=== PATIENT | female | born 1925 | race Caucasian/White ===

== ENCOUNTER 2016-08-10 13:39 | Observation (INO) ==
[2016-08-10] MEDS ORDERED: Ipratropium/Albuterol Neb 3 ML IH ONE (14:01)
--- NOTE | 2016-08-10 14:02 | Emergency Department Note ---
Disposition Clinical Impression: Failure of outpatient treatment Acute bronchitis Qualifiers: Bronchitis organism: unspecified organism Qualified Code(s): J20.9 - Acute bronchitis, unspecified Disposition: Admitted As Inpatient Condition: Fair Referrals: NO,PCP [Non-Partnered Physician] - Forms: ED Satisfaction Letter SOB HPI - General Chief Complaint: ED Shortness of Breath/Dyspnea Stated Complaint: DONTAE/weakness Source: EMS Limitations: no limitations Nursing Notes Reviewed: Yes Vital Signs Reviewed: Yes - History of Present Illness Pt Subjective Complaint: shortness of breath Onset (ago): day(s) (9) Context: recent illness Severity: moderate Consistency/Duration: intermittent Improves with: nothing Worsens with: nothing Known history of: other (placed on Zpack 3 days ag) Associated symptoms: Reports: pain with inspiration Cough present: Yes Cough Description: Involuntary Cough Frequency: Intermittent Sputum production: Yes Sputum Amount: Scant Sputum Color: Clear - Related Data Home Medications Medication Instructions Recorded Confirmed Aspirin 08/07/16 Dyazide 08/07/16 Losartan 08/07/16 Lovastatin 08/07/16 Multi-Day Vitamins 08/07/16 08/07/16 Paxil 08/07/16 Warfarin 08/07/16 Previous Rx's Medication Instructions Recorded Azithromycin [Zithromax] 1 applic PO DAILY #6 tablet 08/07/16 Allergies Allergy/AdvReac Type Severity Reaction Status Date / Time Sulfa (Sulfonamide Allergy Rash Verified 08/07/16 13:32 Antibiotics) All systems ED: reviewed and negative except as stated. Constitutional: Reports: weakness Respiratory: Reports: cough, dyspnea Past Medical History - Past Medical History Source: patient, old records reviewed, nursing notes reviewed Medical history: Reports: atrial fibrillation, cancer, CVA, GERD, other Psychiatric history: Reports: other - Social History Smoking Status: Unknown if ever smoked Smokeless Tobacco Status: No Alcohol use: Reports: unknown Drug use: Reports: unknown Physical Exam - General Limitations: no limitations General appearance: alert - Head Head exam: atraumatic, normocephalic, normal inspection - Eye Eye exam: Present: normal appearance, PERRL, EOMI - Expanded Eye Exam Pupils: Left: reactive - ENT ENT exam: normal exam, normal oropharynx, mucous membranes moist - Expanded ENT Exam External ear exam: Present: normal external inspection Mouth exam: Present: normal external inspection Teeth exam: Present: normal inspection Throat exam: Present: normal inspection - Neck Neck exam: Present: normal inspection, full ROM, trachea midline - Chest Chest inspection: Present: normal inspection, symmetric chest wall rise - Respiratory Respiratory exam: Present: other (bilat coarse rhonchi) - Cardiovascular Cardiovascular exam: Present: regular rate, normal rhythm, normal heart sounds - Abdominal Exam Abdominal exam: Present: soft, Non-Tender. Absent: tenderness, distention, guarding, rebound, rigidity - Extremities Exam Extremities exam: Present: normal inspection, full ROM. Absent: tenderness, pedal edema - Expanded Upper Extremity Exam Shoulder exam: Present: normal inspection, full ROM Arm exam: Present: normal inspection, full ROM Elbow exam: Present: normal inspection, full ROM Forearm/Wrist exam: Present: normal inspection, full ROM Hand exam: Present: normal inspection, full ROM Vascular exam: Normal: capillary refill, radial pulse - Expanded Lower Extremity Exam Hip/Pelvis exam: Present: normal inspection, full ROM Upper leg exam: Present: normal inspection, full ROM Knee exam: Present: normal inspection, full ROM Lower leg exam: Present: normal inspection, full ROM Ankle exam: Present: normal inspection, full ROM Foot/toe exam: Present: normal inspection, full ROM Neurovascular/Tendon exam: Absent: motor deficit, sensory deficit, tendon deficit - Back Exam Back exam: Present: normal inspection, full ROM. Absent: tenderness - Neurological Exam Neurological exam: Present: alert - Expanded Neurological Exam Patient oriented to: Present: person, place, time Coma Scale Eye Opening: Spontaneous Coma Scale Motor Response: Obeys Commands Coma Scale Verbal Response: Oriented Coma Scale Total: 15 - Psychiatric Psychiatric exam: Present: normal affect, normal mood - Skin Skin exam: Present: warm, dry, intact, normal color Course Vital Signs Temperature 98 F 08/10/16 13:40 Pulse Rate 72 08/10/16 13:40 Respiratory Rate 22 08/10/16 13:40 Blood Pressure 134/63 08/10/16 13:40 O2 Sat by Pulse Oximetry 98 08/10/16 13:40 Temperature 98 F 08/10/16 13:40 Pulse Rate 72 08/10/16 13:40 Respiratory Rate 16 08/10/16 14:08 Blood Pressure 134/63 08/10/16 13:40 O2 Sat by Pulse Oximetry 97 08/10/16 14:08 Oxygen Delivery Oxygen Delivery Room Air Shortness of Breath/Dyspnea - Differential Diagnosis Likely: acute exacerbation of chronic obstructive airways disease, congestive heart failure, pneumonia, asthma with exacerbation, pulmonary embolism, pneumothorax, arrhythmia - Medical Records Medical records reviewed: Yes I reviewed the patient's medical records. - Lab Data Lab results reviewed: Yes I reviewed the patient's lab results. Result diagrams: 08/10/16 15:55 08/10/16 15:55 Lab Results 08/10/16 08/10/16 08/10/16 Range/Units 15:55 15:55 15:55 WBC 6.4 (4.3-11.1) K/mcL RBC 4.21 (3.82-4.97) M/mcL Hgb 12.1 (11.5-15.4) g/dL Hct 36.9 (35.3-44.9) % MCV 87.6 (83.0-100.0) fL MCH 28.7 (28.0-33.3) pg MCHC 32.8 (31.6-35.5) g/dL RDW 14.5 (11.5-14.5) % Plt Count 223 (140-400) K/mcL MPV 10.5 (9.4-12.4) fL Immature Gran % 0.5 (0-4) % Seg Neutrophils % 78.8 % Lymphocytes % 14.2 % Monocytes % 5.8 % Eosinophils % 0.5 % Basophils % 0.2 % Neutrophils # 5.1 (1.6-8.9) K/mcL Lymphocytes # 0.9 (0.6-4.6) K/mcL Monocytes # 0.4 (0.0-1.3) K/mcL Eosinophils # 0.0 (0.0-0.6) K/mcL Basophils # 0.0 (0.0-0.2) K/mcL Sodium 140 (136-145) mEq/L Potassium 3.7 (3.5-4.5) mEq/L Chloride 104 (98-109) mEq/L Carbon Dioxide 25 (19-29) mEq/L BUN 32 H (7-20) mg/dL Creatinine 1.51 H (0.57-1.11) mg/dL Est GFR ( Amer) 39 L (> 60) Est GFR (Non-Af Amer) 32 L (> 60) BUN/Creatinine Ratio 21 (6-26) Glucose 104 H (70-99) mg/dL Calculated Osmolality 297 (280-300) Calcium 8.8 (8.6-10.8) mg/dL Troponin I 0.01 (0-0.03) ng/mL B-Natriuretic Peptide (0-100) pg/mL 08/10/16 Range/Units 15:55 WBC (4.3-11.1) K/mcL RBC (3.82-4.97) M/mcL Hgb (11.5-15.4) g/dL Hct (35.3-44.9) % MCV (83.0-100.0) fL MCH (28.0-33.3) pg MCHC (31.6-35.5) g/dL RDW (11.5-14.5) % Plt Count (140-400) K/mcL MPV (9.4-12.4) fL Immature Gran % (0-4) % Seg Neutrophils % % Lymphocytes % % Monocytes % % Eosinophils % % Basophils % % Neutrophils # (1.6-8.9) K/mcL Lymphocytes # (0.6-4.6) K/mcL Monocytes # (0.0-1.3) K/mcL Eosinophils # (0.0-0.6) K/mcL Basophils # (0.0-0.2) K/mcL Sodium (136-145) mEq/L Potassium (3.5-4.5) mEq/L Chloride (98-109) mEq/L Carbon Dioxide (19-29) mEq/L BUN (7-20) mg/dL Creatinine (0.57-1.11) mg/dL Est GFR ( Amer) (> 60) Est GFR (Non-Af Amer) (> 60) BUN/Creatinine Ratio (6-26) Glucose (70-99) mg/dL Calculated Osmolality (280-300) Calcium (8.6-10.8) mg/dL Troponin I (0-0.03) ng/mL B-Natriuretic Peptide 152 H (0-100) pg/mL - Radiology Data Radiology results reviewed: Yes I reviewed the patient's radiology results.
[2016-08-10 16:06] LABS: Basophils % 0.2 %; Eosinophils % 0.5 %; Hematocrit 36.9 % (35.3-44.9); Hemoglobin 12.1 g/dL (11.5-15.4); Immature Granulocytes % 0.5 % (0-4); Lymphocytes # 0.9 K/mcL (0.6-4.6); Lymphocytes % 14.2 %; Mean Corpuscular HGB Conc 32.8 g/dL (31.6-35.5); Mean Corpuscular Hemoglobin 28.7 pg (28.0-33.3); Mean Corpuscular Volume 87.6 fL (83.0-100.0); Mean Platelet Volume 10.5 fL (9.4-12.4); Monocytes # 0.4 K/mcL (0.0-1.3); Monocytes % 5.8 %; Neutrophils # 5.1 K/mcL (1.6-8.9); Platelet Count 223 K/mcL (140-400); Red Blood Count 4.21 M/mcL (3.82-4.97); Red Cell Distribution Width 14.5 % (11.5-14.5); Segmented Neutrophils % 78.8 %
[2016-08-10 16:20] LABS: Calcium 8.8 mg/dL (8.6-10.8); Potassium 3.7 mEq/L (3.5-4.5)
[2016-08-10] MEDS ORDERED: Acetaminophen 325 MG TABLET PO PRN (20:26)
[2016-08-10] MEDS ORDERED: *HR* Promethazine 25 MG/ML VIAL IVP PRN (20:26)
[2016-08-10] MEDS ORDERED: Naloxone 0.4 MG/ML INJ IVP PRN (20:26)
--- NOTE | 2016-08-10 20:42 | Internal Med History&Physical ---
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, old, speech/language deficit Current visit: Yes Status: Chronic (5) HTN (hypertension) Current visit: Yes Status: Chronic (6) Upper respiratory infection Current visit: No Status: Acute levaquin PO bronchodilators Qualifiers: URI type: unspecified URI Qualified Code(s): J06.9 - Acute upper respiratory infection, unspecified (7) CKD (chronic kidney disease) Current visit: Yes Status: Acute BUN 32/Cr 1.51 near baseline from 2015 hold diazide and cozaar for 24-48h avoid nephrotoxins Qualifiers: Chronic kidney disease stage: unspecified stage Qualified Code(s): N18.9 - Chronic kidney disease, unspecified Internal Medicine - H&P: HPI Chief complaint: shortness of breath Admitted From: Home Plans for Post Hospital Care: Home History of present illness: Ms. Ronquillo is a 89 year old female c/o shortness of breath. 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 Pt states that yellow-white productive cough and dyspnea started about 5 days ago. Pt states SOB made worse with any activity as well as at night when she is laying down in bed which has caused her to be unable to sleep because she cannot stop coughing. She states increased fatigue due to not sleeping well. She states the excessive coughing causes her dyspnea to be worse. She also state she has some discomfort with deep inspiration, which also increases her cough. Pt presented to urgent care 08/07 was given a zpack for URI, she has taken three days of the medication and has not improved her symptoms. Pt denies night sweats, headache, body aches, fever/chills, nausea,vomiting, denies abdominal pain difficulty or pain with urination or change in BM, she denies hemoptysis, home 02use. She denies history of smoking, COPD or asthma. Past Med Surg Social Fam HX - Past Medical History Medical history: arthritis, atrial fibrillation, cancer, CVA, GERD, hypertension , other (memory loss post stroke) Psychiatric history: depression, other - Social History Smoking Status: Never smoker Smokeless Tobacco Status: No Alcohol use: none Drug use: none Occupational status: retired Current living situation: Home, With Family Activity Level: Mostly sedentary - Family History Brother Living Status: Hx Family Cardiac Disorders: Yes Hx Family Cancer: Yes Internal Medicine - H&P: Meds Aspirin [Lo-Dose Aspirin EC] 81 mg PO DAILY 08/10/16 [History] Losartan Potassium [Cozaar] 25 mg PO DAILY 08/10/16 [History] Lovastatin [Mevacor] 20 mg PO HS 08/10/16 [History] Multivitamin [Multi-Day Vitamins] 1 tab PO DAILY 08/10/16 [History] Omeprazole [PriLOSEC] 20 mg PO DAILY 08/10/16 [History] Paroxetine HCl [Paxil] 20 mg PO DAILY 08/10/16 [History] Triamterene/Hydrochlorothiazid [Dyazide 37.5-25 Capsule] 1 cap PO DAILY [History] Warfarin [Coumadin] 2.5 mg PO DAILY 08/10/16 [History] Allergies Sulfa (Sulfonamide Antibiotics) Allergy (Verified 08/07/16 13:32) Rash All Systems PM: A 10-system review of systems was performed and is negative for pertinent findings except as documented above in the HPI. - Constitutional Constitutional: fatigue, no fever(s), no falls, no night sweats, no weakness - EENT Eyes: no change in vision, no discharge, no pain, no photophobia - Cardiovascular Cardiovascular ROS IM: no chest pain, no diaphoresis, no dyspnea, no lightheadedness, no palpitations, no syncope - Respiratory Respiratory: cough, dyspnea, dyspnea on exertion, pain on inspiration, chest congestion, excessive phlegm production, change in phlegm color, pain with cough , no hemoptysis, no stridor - Gastrointestinal Gastrointestinal: no abdominal pain, no diarrhea, no hematemesis, no hematochezia, no melena, no nausea, no vomiting - Genitourinary Genitourinary: no change in urinary stream, no dysuria, no flank pain, no hematuria - Musculoskeletal Musculoskeletal ROS IM: no arthralgias, no myalgias, no numbness, no tingling - Integumentary Integumentary IM: no rash, no unusual bruising - Neurological Neurological ROS: memory loss (chronic post stroke), no frequent falls, no headache(s), no numbness, no tingling - Psychiatric Psychiatric: no anxiety, no depression - Constitutional Vitals: Temp Pulse Resp BP Pulse Ox 98 F 77 18 108/64 97 08/10/16 13:40 08/10/16 19:27 08/10/16 19:39 08/10/16 19:39 08/10/16 19:27 General appearance: Present: A&O X 2, no acute distress, obese Exam: pt is able to answer simple questions but is easily confused by more complex questions pt sometimes aware she is responding incorrectly and does try to correct herself if able - Head Head exam: Present: atraumatic, normocephalic - Eye Eye exam: Present: EOMI, conjuntiva pink, sclera anicteric - ENT ENT exam: Present: mucous membranes dry - Neck Neck exam general surgery: Present: full ROM, supple. Absent: lymphadenopathy, tenderness - Respiratory Respiratory exam: Present: decreased breath sounds, rhonchi, wheezes. Absent: accessory muscle use, chest wall tenderness, respiratory distress, tachypnea - Expanded Respiratory Exam Location: decreased breath sounds: Left, Right, Lower, rhonchi: Left, Right, Upper, Lower, wheezes: Left, Right, Lower - Cardiovascular Cardiovascular exam: Present: RRR, +S1, +S2. Absent: diastolic murmur, gallop, rubs, systolic murmur - GI/Abdominal GI/Abdominal exam: Present: normal bowel sounds, soft, no peritoneal signs. Absent: guarding, rebound, rigid, tenderness - Extremities Exam Extremities exam: Present: radial pulses palpable and symetrical. Absent: calf tenderness, cyanotic, pedal edema, tenderness - Neurological Exam Neurological exam: Present: alert, CN II-XII intact, speech deficit ( interchanges words, slow speech,forgets past names/events). Absent: facial droop - Expanded Neurological Exam Neurological exam expanded: Present: memory loss-recent event, memory loss- remote event Patient oriented to: Present: person, place Cranial Nerves: EOM's intact PM: Normal, nystagmus PM: Normal, tongue deviation PM: Normal Sensory exam: lower extremity light touch: Normal, upper extremity light touch: Normal Neuro motor strength exam: LUE: 4, RUE: 4, LLE: 4, RLE: 4 - Psychiatric Psychiatric exam: Present: normal affect, normal mood - Skin Skin exam: Present: dry, intact, warm Internal Med - H&P Results - Labs CBC & Chem 7: 08/10/16 15:55 08/10/16 15:55 <Fabian Lopez - Last Filed: 08/10/16 23:07> - Constitutional Vitals: Temp Pulse Resp BP Pulse Ox 97.8 F 63 16 136/75 96 08/10/16 21:05 08/10/16 21:05 08/10/16 21:05 08/10/16 21:05 08/10/16 21:15 General appearance: Present: no acute distress - ENT ENT exam: Present: mucous membranes dry, normal exam, normal oropharynx Additional comments: mild nasal congestion; no drainage or PND - Respiratory Respiratory exam: Present: rhonchi (mild), wheezes (minimal). Absent: chest wall tenderness, respiratory distress - Cardiovascular Cardiovascular exam: Present: irregular rhythm, +S1, +S2. Absent: systolic murmur - GI/Abdominal GI/Abdominal exam: Present: soft. Absent: tenderness - Extremities Exam Extremities exam: Present: radial pulses palpable and symetrical. Absent: calf tenderness, joint swelling, pedal edema, tenderness Internal Med - H&P Results - Labs CBC & Chem 7: 08/10/16 15:55 08/10/16 15:55 - Diagnostic Studies Chest x-ray Status: image reviewed by me (clear lungs; pacer; normal cardiac shadow) - Attending Attestation I discussed the patient AMBLER, PMH, ROS, lab data, and exam findings with Dr. Arreguin. I then saw and examined patient independently as well. She feels ill but she is in no acute distress. She has failed outpatient treatment for bronchitis. However, I suspect this is viral in nature. We are treating her with PO Levaquin for the remote possibility of bacterial infection, but my suspicion is low. Given her age and co-morbidities, she is at risk for bacterial super-infection/pneumonia. We will treat her conservatively and, hopefully, she can discharge soon with close follow up. Close observation is recommended. I will order a Flu test on her, but my suspicion for Influenza is low. Other than my comments above and noted exam findings, I agree with Dr. Arreguin's assessment and plan.
[2016-08-10] MEDS ORDERED: Ipratropium/Albuterol Neb 3 ML IH PRN (22:17)
[2016-08-10] MEDS: levoFLOXacin 500 MG TABLET PO SCH (22:52)
[2016-08-10 23:27] LABS: INR 3.1; Prothrombin Time 34.4 Seconds (9.4-12.1)
[2016-08-11 05:35] LABS: 2009 H1N1 PCR NOT DETECTED (Not Detect); Influenza A PCR Negative (Negative); Influenza B PCR Negative (Negative)
[2016-08-11 06:16] LABS: Calcium 8.2 mg/dL (8.6-10.8); Potassium 3.4 mEq/L (3.5-4.5)
[2016-08-11] MEDS: Aspirin Enteric Coated 81 MG Tablet PO SCH (08:40)
[2016-08-11] MEDS: levoFLOXacin 500 MG TABLET PO SCH (08:41)
--- NOTE | 2016-08-11 12:27 | Electrocardiograph Report ---
[facility] Test Date: 2016-08-10 Pat Name: Ruth Ronquillo Department: 103 Room: 3B22 Gender: F Oil Driller: : [id number] Requested By: Tommy Mcneil Order Number: [id number] Reading MD: Sean William DO Measurements Intervals [place] Rate: 68 P: OR: 0 QRS: -20 QRSD: 89 T: 259 QT: 370 QTc: 388 Interpretive Statements [employer] Electronically Signed On 08-11-2016 12:26:08 EDT by Sean William DO
--- NOTE | 2016-08-11 13:39 | Internal Med Progress Note ---
Date of Encounter: 08/11/16 Time of Encounter: 09:45 - Assessment and plan (1) Upper respiratory infection Current Visit: No Status: Acute Assessment and plan: On examination, respirations even and easy. Lungs clear to auscultation bilaterally with good aeration. Chest x-ray negative. Flu swab negative. Patient continues to endorse shortness of breath above her norm as well as generalized weakness. We will continue to symptomatically treat. Will bring OT and PT on board. She is tolerating room air. Given her generalized malaise and weakness, will obtain OT and PT consultations and observe overnight. ITS Impressions Chest X-Ray 08/10/16 14:01 IMPRESSION: No acute cardiopulmonary process. D/ / Coleen Li MD / Coleen Li MD Interpreting Provider: Coleen Li MD (2) Acute bronchitis Current Visit: Yes Status: Acute (3) Failure of outpatient treatment Current Visit: Yes Status: Acute Assessment and plan: Nearly completed an outpatient Z-Aftab. Continue levofloxacin (4) Generalized weakness Current Visit: Yes Status: Acute Assessment and plan: Patient stating she usually uses a walker at home but states that while she has been admitted, she requires the assistance of somebody to help her ambulate to the bathroom. We will bring OT and PT on board. Patient reportedly lives with her daughter and does not currently have OT or PT home health services. (5) Afib Current Visit: Yes Status: Chronic Assessment and plan: Rate control, INR 3.1, will continue to trend; on Coumadin. Qualifiers: Atrial fibrillation type: chronic Qualified Code(s): I48.2 - Chronic atrial fibrillation (6) Memory loss due to medical condition Current Visit: Yes Status: Chronic (7) CVA, old, speech/language deficit Current Visit: Yes Status: Chronic (8) HTN (hypertension) Current Visit: Yes Status: Chronic Assessment and plan: Currently controlled and slightly borderline hypertensive at times, renal functioning now consistent with her baseline, will resume losartan (9) CKD (chronic kidney disease) Current Visit: Yes Status: Chronic Assessment and plan: Stable and consistent with her baseline, we will continue to trend - Subjective Interval history: Patient seen and examined. On examination, patient initially asleep and awakened easily to voice. Patient denies pain at this time but continues to endorse cough, shortness of breath, and weakness above her norm. - Constitutional Vitals: Temp Pulse Resp BP Pulse Ox 98.2 F 66 17 146/72 97 08/11/16 11:13 08/11/16 11:13 08/11/16 11:13 08/11/16 11:13 08/11/16 11:13 General appearance: Present: A&O X 3, pleasant, no acute distress, answers questions appropriately - Head Head exam: Present: atraumatic, normocephalic - Eye Eye exam: Present: PERRL, conjuntiva pink, sclera anicteric Pupils: Present: PERRL - Neck Neck exam general surgery: Present: supple, trachea midline. Absent: lymphadenopathy - Respiratory Respiratory exam: Present: CTAB. Absent: accessory muscle use, rales, respiratory distress, rhonchi, wheezes - Cardiovascular Cardiovascular exam: Present: RRR, +S1, +S2. Absent: diastolic murmur, gallop, rubs, systolic murmur - GI/Abdominal GI/Abdominal exam: Present: normal bowel sounds, soft, no peritoneal signs. Absent: distended, tenderness - Extremities Exam Extremities exam: Present: warm, radial pulses palpable and symetrical. Absent : calf tenderness, cyanotic, pedal edema - Neurological Exam Neurological exam: Present: alert, CN II-XII intact, oriented X3, no focal deficits, strengths equal and symetr throughout. Absent: pronater drift, facial droop, speech deficit - Skin Skin exam: Present: dry, intact, pallor, warm Internal Medicine: Result - Labs CBC & Chem 7: 08/10/16 15:55 08/11/16 04:23 Labs: BMP 08/11/16 04:23 Sodium 141 Potassium 3.4 L Chloride 107 Carbon Dioxide 23 BUN 29 H Creatinine 1.36 H Glucose 84 Calcium 8.2 L - ABG Interpretation ABG results: PT/INR, D-dimer PT 34.4 Seconds (9.4-12.1) H 08/10/16 22:58 - VTE Reasons for not Prescribing Prophylaxis: Not indicated-Anticoagulated or INR therapeutic Consult Discharge Plan - Plan Referrals: Danielito Huynh DO [Primary Care Provider] -
[2016-08-11] MEDS ORDERED: *HR* Warfarin 2.5 MG TABLET PO SCH (18:00)
[2016-08-11] MEDS ORDERED: Warfarin perPT PO PRN (18:00)
[2016-08-12 05:06] LABS: INR 3.9
[2016-08-12 05:13] LABS: Calcium 8.4 mg/dL (8.6-10.8); Potassium 3.3 mEq/L (3.5-4.5); Prothrombin Time 44.2 Seconds (9.4-12.1)
[2016-08-12] MEDS ORDERED: Potassium Chloride Elixir 20 MEQ/15 ML UDC PO ONE (08:05)
[2016-08-12] MEDS: Aspirin Enteric Coated 81 MG Tablet PO SCH (08:49)
[2016-08-12] MEDS ORDERED: levoFLOXacin 500 MG TABLET PO SCH (09:00)
[2016-08-12 10:53] VITALS: BP 141/56
--- NOTE | 2016-08-12 13:25 | Discharge Summary ---
Date of Encounter: 08/12/16 Time of Encounter: 11:00 - Discharge Diagnosis (1) Upper respiratory infection Priority: Primary Status: Acute Comments: On examination, respirations even and easy. Lungs clear to auscultation bilaterally with good aeration. Chest x-ray negative. Flu swab negative. Patient denies shortness of breath above her normal day of discharge. OT and PT recommended home health services. (2) Acute bronchitis Priority: Primary Status: Acute (3) Failure of outpatient treatment Priority: Primary Status: Acute (4) Generalized weakness Priority: Primary Status: Acute Comments: Sending home with home health services, her daughter lives with her as well. (5) Afib Priority: Secondary Status: Chronic Comments: Rate controlled, INR 3.9 on day of discharge without signs of active bleeding- will have her hold tonight's dose of coumadin and followup closely outpatient. 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 (8) HTN (hypertension) Priority: Secondary Status: Chronic Comments: Currently controlled/slightly borderline hypertensive at times, her home medications were resumed. Recommended blood pressure checks at home, keeping a log, and following up outpatient. (9) CKD (chronic kidney disease) Priority: Secondary Status: Chronic Comments: Consistent with her baseline throughout this admission. - Discharge Medications Prescriptions: Levofloxacin 750 mg PO Q48H #5 tablet Home Medications: Aspirin [Lo-Dose Aspirin EC] 81 mg PO DAILY 08/10/16 [History] Losartan Potassium [Cozaar] 25 mg PO DAILY 08/10/16 [History] Lovastatin [Mevacor] 20 mg PO HS 08/10/16 [History] Multivitamin [Multi-Day Vitamins] 1 tab PO DAILY 08/10/16 [History] Omeprazole [PriLOSEC] 20 mg PO DAILY 08/10/16 [History] Paroxetine HCl [Paxil] 20 mg PO DAILY 08/10/16 [History] Triamterene/Hydrochlorothiazid [Dyazide 37.5-25 Capsule] 1 cap PO DAILY [History] Warfarin [Coumadin] 2.5 mg PO DAILY 08/10/16 [History] Levofloxacin 750 mg PO Q48H #5 tablet 08/12/16 [Rx] Allergies/Adverse Reactions: Allergies Sulfa (Sulfonamide Antibiotics) Allergy (Verified 08/07/16 13:32) Rash Date of admission: 08/10/16 19:01 Primary care physician: Danielito Huynh DO Consults: 08/11/16 11:07 Consult to Physical Therapy [CONS] Routine Comment: Evaluate, develop and implement POC 08/11/16 11:08 Consult to Occupational Therapy [CONS] Routine Comment: Evaluate, develop and implement POC 08/11/16 19:32 Consult to Food Checker [CONS] Routine Reason for SW Consult: wants to have HH ([facility]) Discharging clinician: Crystal Armendariz Anticipated date of discharge: 08/12/16 (with HH [facility]) - Patient Status Disposition: Home Health Service Condition: Fair Functional capacity at discharge: uses cane/walker Overall status at discharge: patient is progressing back to baseline - Discharge Instructions Follow Up With: Danielito Huynh DO [Primary Care Provider] - Additional Instructions: Follow-up with primary care provider within one to 2 weeks, recheck INR within 2 -3 days. Hold tonight's dose of Coumadin - Diet and Activity Activity: ambulate only with your walker, as per physical therapy, increase activity as tolerated Diet: low salt diet Hospital course: Ms. Ronquillo is a 89 year old female with past medical history of atrial fibrillation on Coumadin, prior CVA 2 with residual memory issues, hypertension , chronic kidney disease stage III. Patient presented to the emergency department chief complaint productive cough and dyspnea 5 days. Patient stating her shortness of breath was exacerbated with any activity as well as at night when she lay down for bed and caused her to be unable to sleep due to persistent coughing. Patient also endorsed increased fatigue. Patient also described discomfort with deep inspiration. She was seen in urgent care on 08/07 was given a Z-Aftab for a URI and she had taken 3 days of the medication without improvement in her symptoms prompting her presentation to the emergency department. Workup in the emergency department unremarkable. Chest x-ray negative. Patient was admitted to the hospitalist service for further evaluation and management. Throughout this admission, her lungs were clear to auscultation bilaterally with good aeration. Flu swab negative. Given her advanced age and generalized weakness, OT and PT evaluations were sought and they recommended home health services. Patient was able to tolerate a regular diet while admitted. Her INR was slightly supratherapeutic on day of discharge she was instructed to hold one dose of her Coumadin and to follow up within 2-3 days outpatient. She is discharged home with home health services in stable condition. ITS Impressions Chest X-Ray 08/10/16 14:01 IMPRESSION: No acute cardiopulmonary process. D/ / Coleen Li MD / Coleen Li MD Interpreting Provider: Coleen Li MD - Time Spent with Patient Total time spent providing and/or coordinating discharge services: - Constitutional Vitals: Temp Pulse Resp BP Pulse Ox 97.7 F 68 16 141/56 97 08/12/16 10:52 08/12/16 10:52 08/12/16 10:52 08/12/16 10:52 08/12/16 10:52 General appearance: Present: A&O X 3, pleasant, no acute distress, answers questions appropriately - Head Head exam: Present: atraumatic, normocephalic - Eye Eye exam: Present: PERRL, conjuntiva pink, sclera anicteric Pupils: Present: PERRL - Neck Neck exam general surgery: Present: supple, trachea midline. Absent: lymphadenopathy - Respiratory Respiratory exam: Present: CTAB. Absent: accessory muscle use, decreased breath sounds, rales, respiratory distress, rhonchi, wheezes - Cardiovascular Cardiovascular exam: Present: RRR, +S1, +S2. Absent: diastolic murmur, gallop, rubs, systolic murmur - GI/Abdominal GI/Abdominal exam: Present: normal bowel sounds, soft, no peritoneal signs. Absent: distended, tenderness - Extremities Exam Extremities exam: Present: warm, radial pulses palpable and symetrical. Absent : calf tenderness, cyanotic, pedal edema - Neurological Exam Neurological exam: Present: alert, CN II-XII intact, oriented X3, no focal deficits, strengths equal and symetr throughout. Absent: pronater drift, facial droop, speech deficit - Skin Skin exam: Present: dry, intact, normal color, warm - VTE Reasons for not Prescribing Prophylaxis: Not indicated-Anticoagulated or INR therapeutic
--- NOTE | 2016-08-12 13:35 | Physician Discharge Referral ---
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 For more information, call the [employer] Tobacco Quit Line at 2-634-JRXV-NOW. - Activity Activity Orders: Up ad elia, Ambulate (per PT), Walker - Services Needed Following services are medically necessary services: Nursing, Home Health Aide, Physical Therapy, Occupational Therapy Other Treatments: recheck INR within 2-3 days of discharge - Transfer Medications Prescriptions: Levofloxacin 750 mg PO Q48H #5 tablet Home Medications: Aspirin [Lo-Dose Aspirin EC] 81 mg PO DAILY 08/10/16 [History] Losartan Potassium [Cozaar] 25 mg PO DAILY 08/10/16 [History] Lovastatin [Mevacor] 20 mg PO HS 08/10/16 [History] Multivitamin [Multi-Day Vitamins] 1 tab PO DAILY 08/10/16 [History] Omeprazole [PriLOSEC] 20 mg PO DAILY 08/10/16 [History] Paroxetine HCl [Paxil] 20 mg PO DAILY 08/10/16 [History] Triamterene/Hydrochlorothiazid [Dyazide 37.5-25 Capsule] 1 cap PO DAILY [History] Warfarin [Coumadin] 2.5 mg PO DAILY 08/10/16 [History] Levofloxacin 750 mg PO Q48H #5 tablet 08/12/16 [Rx] Allergies/Adverse Reactions: Allergies Sulfa (Sulfonamide Antibiotics) Allergy (Verified 08/07/16 13:32) Rash Certification: Further, I certify that my clinical findings support that this patient is homebound (i.e. absences from home require considerable and taxing effort and are for medical reasons or adventism services or infrequently or short duration when for other reasons) because: Homebound Reason: Patient requires assistance of a person or device to safely leave home, Leaving home requires considerable and taxing effort due to condition Attestation: My signature below is to certify that this patient is under my care and that I, or nurse practitioner, or a physician's health center assistant working with me, has a face-to -face encounter with this patient.
--- NOTE | 2016-08-13 16:17 | Electrocardiograph Report ---
[place] [id number] Test Date: 2016-08-12 Pat Name: Ruth Ronquillo Department: 113 Room: 3B22 Gender: F Dam Worker: : [id number] Requested By: Crystal Armendariz Order Number: [id number] Reading MD: Yemi Gannon MD Measurements Intervals [place] Rate: 61 P: 154 [place]: 263 QRS: -39 QRSD: 94 T: -50 QT: 371 QTc: 375 Interpretive Statements ELECTRONIC ATRIAL PACEMAKER MARKED LEFT AXIS DEVIATION BASELINE ARTIFACT PVC Electronically Signed On 08-13-2016 16:15:19 EDT by Yemi Gannon MD
== END 2016-08-12 16:24 | disposition home health service (06) ==
LOC: EMEROO 13:39 → 3BNU 13:39 → SUATTDRO 19:01 → 3BNU 20:17
PROVIDERS: ADMIT Pediatrics; ATTEND Nurse Practitioner Family